=== PATIENT | female | born 1960 | race American Indian/Alaskan Native ===

== ENCOUNTER 2019-03-29 20:31 | Emergency (ER) | payer MEDICARE ==
--- NOTE | 2019-03-29 22:21 | Emergency Department Report ---
Blank Doc - Documentation Documentation: went to [facility] today in [place] today due to fall and bp found to be elevated in UC. No [place] , [place] , blurred vision . Denies HTN but reports took bp pills in the past and ran out. took in 2017. Unknown med . report knee pain and swelling after falling. Treated for fall in [facility] and went home and decided to come to er because her BP was 205 today in [facility] BP here is 192/96 To be evaluated and repeat bp
--- NOTE | 2019-03-30 01:05 | Emergency Department Report ---
ED General Adult HPI - General Chief complaint: High BP Stated complaint: HPB Time Seen by Provider: 03/29/19 22:06 Source: patient, EMS Mode of arrival: Ambulatory Limitations: No Limitations - History of Present Illness Initial comments: Patient is a 58-year-old female presents emergency room with complaints of elevated blood pressure. States she was at urgent care today for left knee pain and her pressure was found to be elevated. she got treated for her knee pain and then was advised to be seen for her blood pressure. she denies any symptoms at all relating to her blood pressure. Denies any headache, chest pain, dizziness, numbness, weakness. She states she has a past medical history of HTN. She does not know what she takes for her blood pressure but states she has not taken it in about 3-4 months. She states she used to see someone at [facility] but moved here in 3-4 months ago and has not seen a primary care doctor in the area. She also has past medical history of anemia and has not taken an iron supplement in a year. - Related Data Previous Rx's Medication Instructions Recorded Last Taken Type amLODIPine [Norvasc] 10 mg PO DAILY #14 tab 03/30/19 Unknown Rx ED Review of Systems ROS: Stated complaint: HPB Other details as noted in HPI Comment: All other systems reviewed and negative ED Past Medical Hx - Past Medical History Hx Hypertension: Yes Additional medical history: anemia - Social History Smoking Status: Never Smoker Substance Use Type: None - Medications Home Medications: Home Medications Medication Instructions Recorded Confirmed Last Taken Type amLODIPine [Norvasc] 10 mg PO DAILY #14 tab 03/30/19 Unknown Rx ED Physical Exam - General Limitations: No Limitations General appearance: alert, in no apparent distress - Head Head exam: Present: atraumatic, normocephalic - Eye Eye exam: Present: normal appearance, PERRL - ENT ENT exam: Present: mucous membranes moist - Respiratory Respiratory exam: Present: normal lung sounds bilaterally. Absent: respiratory distress, wheezes, rales, rhonchi, stridor, chest wall tenderness, accessory muscle use, decreased breath sounds, prolonged expiratory - Cardiovascular Cardiovascular Exam: Present: regular rate, normal rhythm, normal heart sounds. Absent: systolic murmur, diastolic murmur, rubs, gallop - Neurological Exam Neurological exam: Present: alert, oriented X3, CN II-XII intact, normal gait. Absent: motor sensory deficit - Psychiatric Psychiatric exam: Present: normal affect, normal mood - Skin Skin exam: Present: warm, dry, intact ED Course Vital Signs 03/29/19 03/30/19 03/30/19 21:29 00:52 02:33 Temperature 97.7 F 98.5 F Pulse Rate 63 68 71 Respiratory 16 16 16 Rate Blood Pressure 192/96 Blood Pressure 170/101 191/108 [Left] O2 Sat by Pulse 89 100 99 Oximetry ED Medical Decision Making - Lab Data Result diagrams: 03/30/19 01:11 03/30/19 01:09 - Medical Decision Making Patient is a 58-year-old female presents emergency room with complaints of elevated blood pressure. States she was at urgent care today for left knee pain and her pressure was found to be elevated. she got treated for her knee pain and then was advised to be seen for her blood pressure. she denies any symptoms at all relating to her blood pressure. Denies any headache, chest pain, dizziness, numbness, weakness. She states she has a past medical history of HTN. She does not know what she takes for her blood pressure but states she has not taken it in about 3-4 months. She states she used to see someone at [facility] but moved here in 3-4 months ago and has not seen a primary care doctor in the area. She also has past medical history of anemia and has not taken an iron supplement in a year. labs WNL. vitals with elevated blood pre ssure. pt was able to call someone at home and states she is on 10 mg of amlodipine daily. pt given two week supply of her blood pressure medication and advised that it is very important she follow up with a PCP and that future refills would need to be through her PCP. advised to please drink plenty of fluids. Please follow-up with a primary care doctor in the next 2-3 days. return to the emergency room if begin experiencing any symptoms. Please eat a low sodium diet. Critical care attestation.: If time is entered above; I have spent that time in minutes in the direct care of this critically ill patient, excluding procedure time. ED Disposition Clinical Impression: Elevated blood pressure reading Disposition: -01 TO HOME OR SELFCARE Is pt being admited?: No Does the pt Need Aspirin: No Condition: Stable Instructions: Chronic Hypertension (ED) Additional Instructions: Please drink plenty of fluids. Please follow-up with a primary care doctor in the next 2-3 days. you need to get back on your blood pressure medication. return to the emergency room if begin experiencing any symptoms. Please eat a low sodium diet. Prescriptions: amLODIPine [Norvasc] 10 mg PO DAILY #14 tab Referrals: [facility] [Outside] - 2-3 Days [facility] [Provider Group] - 2-3 Days [facility] [Outside] - 2-3 Days Time of Disposition: 02:33 Print Language: KISWAHILI
[2019-03-30 01:25] LABS: Basophils % (Auto) 1.3 % (0.0-1.8); Eosinophils # (Auto) 0.1 K/mm3 (0.0-0.4); Eosinophils % (Auto) 2.8 % (0.0-4.3); Hematocrit 36.3 % (30.3-42.9); Hemoglobin 12.1 gm/dl (10.1-14.3); Lymphocytes # (Auto) 0.9 K/mm3 (1.2-5.4); Lymphocytes % (Auto) 34.9 % (13.4-35.0); Mean Corpuscular HGB Conc 33 % (30-34); Mean Corpuscular Volume 88 fl (79-97); Monocytes # (Auto) 0.3 K/mm3 (0.0-0.8); Monocytes % (Auto) 12.3 % (0.0-7.3); Platelet Count 149 K/mm3 (140-440); Red Blood Count 4.11 M/mm3 (3.65-5.03); Red Cell Distribution Width 13.7 % (13.2-15.2)
[2019-03-30 01:52] LABS: BUN/Creatinine Ratio 16; Blood Urea Nitrogen 13 mg/dL (7-17); Calcium 9.3 mg/dL (8.4-10.2); Hemolysis Index 5
[2019-03-30 02:33] VITALS: BP 191/108
== END 2019-03-30 03:38 | disposition home or self-care (01) ==
LOC: ED 20:31
DX: M25.562 Pain in left knee (principal); I10 Essential (primary) hypertension; Z86.2 Personal history of diseases of the blood and blood-forming organs and certain disorders involving the immune mechanism
CPT/HCPCS: 36415; 80048; 85025; 99283

== ENCOUNTER 2019-04-08 02:54 | Emergency (ER) | payer MEDICARE ==
[2019-04-08 02:58] VITALS: BP 153/92
[2019-04-08 03:58] LABS: Basophils % (Auto) 0.9 % (0.0-1.8); Eosinophils # (Auto) 0.1 K/mm3 (0.0-0.4); Eosinophils % (Auto) 1.6 % (0.0-4.3); Hematocrit 37.2 % (30.3-42.9); Hemoglobin 12.4 gm/dl (10.1-14.3); Lymphocytes # (Auto) 0.4 K/mm3 (1.2-5.4); Lymphocytes % (Auto) 9.8 % (13.4-35.0); Mean Corpuscular HGB Conc 33 % (30-34); Mean Corpuscular Volume 88 fl (79-97); Monocytes # (Auto) 0.2 K/mm3 (0.0-0.8); Monocytes % (Auto) 5.5 % (0.0-7.3); Platelet Count 156 K/mm3 (140-440); Red Blood Count 4.21 M/mm3 (3.65-5.03); Red Cell Distribution Width 13.3 % (13.2-15.2)
[2019-04-08 03:59] LABS: Bilirubin,Urine NEG (Negative); Blood,Urine NEG (Negative); Color,Urine Yellow (Yellow); Mucus,Urine FEW /HPF; Protein,Urine <15 mg/dL mg/dL (Negative); Urobilinogen,Urine < 2.0 mg/dL (<2.0)
[2019-04-08 04:17] LABS: Blood Urea Nitrogen 17 mg/dL (7-17)
[2019-04-08 04:18] LABS: Alanine Aminotransferase 9 units/L (7-56); Albumin 4.2 g/dL (3.9-5); BUN/Creatinine Ratio 19; Calcium 9.6 mg/dL (8.4-10.2); Hemolysis Index 9
--- NOTE | 2019-04-08 05:54 | Emergency Department Report ---
ED Abdominal Pain HPI - General Chief Complaint: Abdominal Pain Stated Complaint: RIGHT SIDE PAIN/VOMITING Time Seen by Provider: 04/08/19 05:10 Source: patient, EMS Mode of arrival: Ambulatory Limitations: No Limitations - History of Present Illness Initial Comments: Patient is a 58-year-old -[place] female with no past medical history presents to the ED with complaint of acute onset persistent right flank pain for the last 8 hours. Patient denies dizziness, fever, chills, dysuria, urinary frequency and urgency, vaginal bleeding, diarrhea, chest pain, shortness of breath, cough, back pain, sore throat or vaginal discharge. Patient states that she has a history of frequent urinary tract infections and suspected that this may be another UTI. MD Complaint: abdominal pain, flank pain (right) -: Sudden, hour(s) (8) Location: R flank Radiation: none Migration to: no migration Severity: mild Severity scale (0 -10): 3 Quality: aching, dull Consistency: constant Improves With: nothing Worsens With: nothing Associated Symptoms: denies other symptoms. denies: nausea, vomiting, diarrhea, fever, chills, constipation, dysuria, hematemesis, hematochezia, melena, hematuria, anorexia, syncope - Related Data Previous Rx's Medication Instructions Recorded Last Taken Type amLODIPine [Norvasc] 10 mg PO DAILY #14 tab 03/30/19 Unknown Rx Cyclobenzaprine [Flexeril] 10 mg PO Q8H PRN #15 tablet 04/08/19 Unknown Rx Ketorolac [Toradol] 10 mg PO Q8H PRN #20 tablet 04/08/19 Unknown Rx Allergies Allergy/AdvReac Type Severity Reaction Status Date / Time No Known Allergies Allergy Verified 04/08/19 02:59 ED Review of Systems ROS: Stated complaint: RIGHT SIDE PAIN/VOMITING Other details as noted in HPI Constitutional: denies: chills, fever Eyes: denies: eye pain, eye discharge, vision change ENT: denies: ear pain, throat pain Respiratory: denies: cough, shortness of breath, wheezing Cardiovascular: denies: chest pain, palpitations Endocrine: no symptoms reported Gastrointestinal: abdominal pain (right flank). denies: nausea, diarrhea Genitourinary: denies: urgency, dysuria, discharge Musculoskeletal: denies: back pain, joint swelling, arthralgia Skin: denies: rash, lesions Neurological: denies: headache, weakness, paresthesias Psychiatric: denies: anxiety, depression Hematological/Lymphatic: denies: easy bleeding, easy bruising ED Past Medical Hx - Past Medical History Previous Medical History?: Yes Hx Hypertension: Yes Additional medical history: anemia - Surgical History Past Surgical History?: Yes Additional Surgical History: left hand - Social History Smoking Status: Never Smoker Substance Use Type: None - Medications Home Medications: Home Medications Medication Instructions Recorded Confirmed Last Taken Type amLODIPine [Norvasc] 10 mg PO DAILY #14 tab 03/30/19 Unknown Rx Cyclobenzaprine [Flexeril] 10 mg PO Q8H PRN #15 tablet 04/08/19 Unknown Rx Ketorolac [Toradol] 10 mg PO Q8H PRN #20 tablet 04/08/19 Unknown Rx ED Physical Exam - General Limitations: No Limitations General appearance: alert, in no apparent distress - Head Head exam: Present: atraumatic, normocephalic, normal inspection - Eye Eye exam: Present: normal appearance, PERRL, EOMI. Absent: scleral icterus, conjunctival injection Pupils: Present: normal accommodation - ENT ENT exam: Present: normal exam, normal orophraynx, mucous membranes moist, TM's normal bilaterally, normal external ear exam - Neck Neck exam: Present: normal inspection, full ROM - Respiratory Respiratory exam: Present: normal lung sounds bilaterally. Absent: respiratory distress, wheezes, rales, rhonchi, chest wall tenderness, accessory muscle use, decreased breath sounds - Cardiovascular Cardiovascular Exam: Present: regular rate, normal rhythm, normal heart sounds. Absent: systolic murmur, diastolic murmur, rubs, gallop - GI/Abdominal GI/Abdominal exam: Present: soft, tenderness (right flank), normal bowel sounds. Absent: guarding, rebound, hyperactive bowel sounds, hypoactive bowel sounds, organomegaly - Rectal Rectal exam: Present: deferred - Extremities Exam Extremities exam: Present: normal inspection, full ROM, normal capillary refill - Back Exam Back exam: Present: normal inspection, full ROM, muscle spasm, paraspinal tenderness. Absent: tenderness, CVA tenderness (R), CVA tenderness (L), vertebral tenderness - Neurological Exam Neurological exam: Present: alert, oriented X3, CN II-XII intact, normal gait, reflexes normal - Psychiatric Psychiatric exam: Present: normal affect, normal mood - Skin Skin exam: Present: warm, dry, intact, normal color. Absent: rash ED Course Vital Signs 04/08/19 02:57 Temperature 98.3 F Pulse Rate 81 Respiratory 18 Rate Blood Pressure 153/92 O2 Sat by Pulse 100 Oximetry - Reevaluation(s) Reevaluation #1: 04/08/19 05:52 Patient is alert and oriented x 3, and is in no acute distress, talking with family on phone during physical exam. Lab test results were reviewed and are unremarkable including UA. Patient was discharged on medications and advised to follow up with her PCP in 5-7 days for reevaluation, and advised to return to the ED immediately if symptoms get worse. ED Medical Decision Making - Lab Data Result diagrams: 04/08/19 03:17 04/08/19 03:17 - Medical Decision Making Patient is alert and oriented x 3, and is in no acute distress, talking with family on phone during physical exam. Lab test results were reviewed and are unremarkable including UA. Patient was discharged on medications and advised to follow up with her PCP in 5-7 days for reevaluation, and advised to return to the ED immediately if symptoms get worse. - Differential Diagnosis right flank pain; kidney stones, acute UTI, Gallstones, muscle spasm Critical care attestation.: If time is entered above; I have spent that time in minutes in the direct care of this critically ill patient, excluding procedure time. ED Disposition Clinical Impression: Acute right flank pain, Spasm of thoracic back muscle Disposition: DC-01 TO HOME OR SELFCARE Is pt being admited?: No Does the pt Need Aspirin: No Condition: Stable Instructions: Abdominal Pain (ED), Flank Pain (ED), Muscle Spasm (ED) Additional Instructions: Take medications with food, drink plenty of fluids and follow up with your primary care physician in 7-10 days for reevaluation. Return to the ED immediately if symptoms get worse. Prescriptions: Cyclobenzaprine [Flexeril] 10 mg PO Q8H PRN #15 tablet PRN Reason: Muscle Spasm Ketorolac [Toradol] 10 mg PO Q8H PRN #20 tablet PRN Reason: Pain Referrals: [facility] [Outside] - 3-5 Days Time of Disposition: 05:56 Print Language: TURKISH
== END 2019-04-08 06:08 | disposition home or self-care (01) ==
LOC: ED 02:54
DX: M62.830 Muscle spasm of back (principal); R10.9 Unspecified abdominal pain; N39.0 Urinary tract infection, site not specified; I10 Essential (primary) hypertension; Z79.899 Other long term (current) drug therapy; Z86.2 Personal history of diseases of the blood and blood-forming organs and certain disorders involving the immune mechanism
CPT/HCPCS: 36415; 80053; 81001; 83690; 85025; 99284